=== PATIENT | female | born 1965 | race Two or more races ===

== ENCOUNTER 2023-08-10 15:18 | Inpatient (IN) | payer MEDICAID, OTHER ==
[~2023-08-10] VITALS: Ht 157.5 cm; Wt 89.3 kg
[2023-08-10 16:04] LABS: Basophils # (auto) 0.1 10 ^3/uL (0-0.2); Basophils % (auto) 0.4 % (0.0-2.0); Eosinophils # (auto) 0 10 ^3/uL (0-0.8); Hematocrit 38.9 % (36.0-46.0); Lymphocytes # (auto) 0.6 10 ^3/uL (0.4-5.4); Lymphocytes % (auto) 4.4 % (10.0-50.0); Mean Corpuscular Hemoglobin 29.6 pg (28.0-32.0); Mean Corpuscular Hgb Conc. 33.4 g/dL (32.0-36.0); Mean Corpuscular Volume 88.8 fL (80.0-100.0); Monocytes # (auto) 0.9 10 ^3/uL (0-1.3); Monocytes % (auto) 6.6 % (0.0-12.0); Neutrophils % (auto) 88.6 % (37.0-80.0); Red Blood Cells 4.38 10^6/uL (4.0-5.20); Red Cell Distribution Width 13.1 % (11.8-14.3); White Blood Cell 13.6 10^3/uL (4.4-10.8)
[2023-08-10] MEDS: SODIUM CHLORIDE 0.9% 1,000 ML IV ONE (16:18)
[2023-08-10 16:20] LABS: Alanine Aminotransferase 12 U/L (7-40); Albumin 4.3 g/dL (3.2-4.8); Alkaline Phosphatase 79 U/L (46-116); Anion Gap 9 (5-15); Aspartate Aminotransferase < 8 U/L (13-40); BUN/Creatinine Ratio 17.2 (10.0-20.0); Bilirubin, Total 1.4 mg/dL (0.2-1.0); Blood Urea Nitrogen 32 mg/dL (9-23); Carbon Dioxide 26 mmol/L (20-30); Chloride 92 mmol/L (98-107); Potassium 4.6 mmol/L (3.5-5.1); Sodium 127 mmol/L (136-145); Total Protein 6.7 g/dL (5.7-8.2)
[2023-08-10 16:35] LABS: Glucose 556 mg/dL (74-106)
[2023-08-10 17:04] LABS: Urine Bacteria MANY /hpf (None Seen); Urine Blood 1+ /uL (Negative); Urine Clarity Turbid (Clear); Urine Color Colorless (Yellow); Urine Mucus FEW (None Seen); Urine Protein, UAD 1+ (Negative); Urine Specific Gravity 1.019 (1.001-1.035); Urine Urobilinogen Normal (Negative); Urine WBC 56 /hpf (0 - 5); Urine pH 5.5 (5.0-9.0)
[2023-08-10] MEDS: InsuLIN REG 1unit/0.01ml Soln (100units/ml) SC ONE (17:51)
[2023-08-10] MEDS: cefTRIAXone 1GM/50ML D5W 50 ML IV ONE (18:27)
[2023-08-10] MEDS: ACETAMINOPHEN 325 MG TAB PO ONE ×2 (18:28→20:00)
[2023-08-10] MEDS ORDERED: DOCUSATE SOD 100 MG CAP PO PRN (19:30)
[2023-08-10] MEDS ORDERED: HYDROcodone-ACET 5/325MG TAB PO PRN (19:30)
[2023-08-10 19:38] LABS: COVID19 ANTIGEN SOFIA FIA NEGATIVE (NEGATIVE)
[2023-08-10 19:39] LABS: Rapid Influenza A Negative (Negative); Rapid Influenza B Negative (Negative)
[2023-08-10] MEDS: SODIUM CHLORIDE 0.9% 1,500 ML IV ONE (19:58)
[2023-08-10 20:00] VITALS: PULSE 128; RESP 18; O2SAT 98
[2023-08-10] MEDS: LACTATED RINGER'S 1,000 ML IV ONE ×2 (20:17→22:46)
[2023-08-10] MEDS: SODIUM CHLOR 0.9% PF (SALINE LOCK) 10ML VIAL/SYR IV SCH (22:00)
[2023-08-10 22:15] VITALS: PULSE 132; RESP 16; O2SAT 97
[2023-08-10] MEDS: ASPirin-EC 81 mg tab PO ONE (22:46)
[2023-08-10] MEDS: HEPARIN SODIUM (PORCINE) 5000 UNITS/ML 1ML VIAL SC SCH (22:46)
[2023-08-10] MEDS: InsuLIN REG 1unit/0.01ml Soln (100units/ml) IV ONE (22:47)
[2023-08-11 00:05] LABS: Creatinine, Urine 77.9 mg/dL (30.0-125.0)
[2023-08-11] MEDS: ACETAMINOPHEN 325 MG TAB PO ONE (00:54)
[2023-08-11] MEDS ORDERED: LACTATED RINGER'S 1,000 ML IV SCH (04:00)
[2023-08-11] MEDS: LACTATED RINGER'S 1,000 ML IV ONE ×2 (04:02)
[2023-08-11 05:28] LABS: INR 1.18 (0.9-1.15); Partial Thromboplastin Time 32.8 SEC (24.5-34.5); Prothrombin Time 12.4 sec (9.3-11.8)
[2023-08-11 07:30] VITALS: PULSE 99; RESP 15; O2SAT 96
[2023-08-11] MEDS ORDERED: ACETAMINOPHEN IV 1000 MG/100ML (10MG/ML) IV PRN (07:30)
[2023-08-11] MEDS: CHOLECALCIFEROL (VITD3) 1,000UNIT=25mCg TAB PO SCH (10:15)
[2023-08-11] MEDS: cefTRIAXone 2GM/50ML D5W 50 ML IV SCH (10:16)
[2023-08-11 10:36] LABS: Anion Gap 9 (5-15); Carbon Dioxide 22 mmol/L (20-30); Chloride 100 mmol/L (98-107); Potassium 4.4 mmol/L (3.5-5.1); Sodium 131 mmol/L (136-145)
[2023-08-11 10:43] LABS: BUN/Creatinine Ratio 14.5 (10.0-20.0); Blood Urea Nitrogen 23 mg/dL (9-23)
[2023-08-11 10:46] LABS: Base Excess -3.3 mmol/L (-2.0-2.0)
[2023-08-11 11:00] LABS: Glucose 409 mg/dL (74-106)
[2023-08-11] MEDS ORDERED: DEXTROSE (50%) 50ML SYRG IV PRN (11:00)
[2023-08-11] MEDS: ACCU-CHEK COMFORT CURVE STRIP VI SCH (11:47)
[2023-08-11] MEDS: InsuLIN REG 1unit/0.01ml Soln (100units/ml) SC SCH ×2 (11:58→21:59)
[2023-08-11] MEDS: INSULIN LANTUS (GLARGINE) 1 /0.01ml (100units/ml) SC SCH (11:59)
[2023-08-11 13:26] VITALS: BP 147/67; PULSE 111; PULSE 119; RESP 18; RESP 20; TEMP 98.2; O2SAT 94; O2SAT 98
[2023-08-11] MEDS ORDERED: CARV3.1240 PO (13:36)
[2023-08-11] MEDS ORDERED: PRE5T PO (13:36)
[2023-08-11] MEDS ORDERED: ROPI1TAB78 PO (13:36)
[2023-08-11] MEDS ORDERED: ASPI81CH59 PO (13:36)
[2023-08-11] MEDS ORDERED: MYCO1TAB2 PO (13:36)
[2023-08-11] MEDS ORDERED: TAMS1CAP25 PO (13:36)
[2023-08-11] MEDS ORDERED: MYCO1TAB PO (13:36)
[2023-08-11] MEDS ORDERED: FAMO-12 PO (13:36)
[2023-08-11] MEDS ORDERED: FER325T PO (13:36)
[2023-08-11] MEDS ORDERED: MAGN400T6 PO (13:36)
[2023-08-11] MEDS ORDERED: SEVE800T10 PO (13:36)
[2023-08-11] MEDS ORDERED: INSUINJ37 SC ×3 (14:22→14:31)
[2023-08-11] MEDS ORDERED: CARV-216 OR (14:22)
[2023-08-11] MEDS ORDERED: ESTR0.1C5 VA (14:22)
[2023-08-11] MEDS ORDERED: TACR1TAB2 PO ×2 (14:22→17:42)
[2023-08-11] MEDS ORDERED: INSU100I28 IJ ×4 (14:22→14:28)
[2023-08-11] MEDS ORDERED: REPA2TAB8 OR (14:22)
[2023-08-11] MEDS ORDERED: CHOL500021 OR (14:22)
[2023-08-11] MEDS ORDERED: MYCO360T PO (14:22)
[2023-08-11] MEDS ORDERED: DOCU-94 PO (14:24)
[2023-08-11] MEDS: FAMOTIDINE 20 MG TAB PO SCH (15:00)
[2023-08-11 16:56] VITALS: BP 110/66; PULSE 121; RESP 18; TEMP 99.5; O2SAT 94
[2023-08-11] MEDS: ONDANSETRON HCL 4 MG/2 ML VIAL IV PRN (17:43)
[2023-08-11] MEDS: TAMSULOSIN HYDROCHLORIDE 0.4 MG CAP PO SCH (17:43)
[2023-08-11] MEDS: FERROUS SULFATE 325mg EC TAB PO SCH (17:43)
[2023-08-11] MEDS: SEVELAMER 800 MG TAB PO SCH (17:54)
[2023-08-11] MEDS: ACETAMINOPHEN 325 MG TAB PO PRN (17:57)
[2023-08-11 20:00] VITALS: PULSE 100
[2023-08-11] MEDS: HEPARIN SODIUM (PORCINE) 5000 UNITS/ML 1ML VIAL SC SCH (21:10)
[2023-08-11] MEDS: MAGNESIUM OXIDE 400 MG TAB PO SCH (21:23)
[2023-08-11] MEDS: CARVEDILOL 3.125 MG TAB PO SCH (21:23)
[2023-08-11 21:32] VITALS: BP 116/50; PULSE 99; RESP 18; TEMP 98.2; O2SAT 100
[2023-08-11] MEDS ORDERED: HEPARIN SODIUM (PORCINE) 5000 UNITS/ML 1ML VIAL SC SCH (22:00)
[2023-08-12] VITALS (11 sets, daily range): BP systolic 101–165; BP diastolic 43–79; PULSE 75–100; RESP 14–18; TEMP 97.8–100; O2SAT 95–98
[2023-08-12] MEDS: ASPirin 81 mg TAB PO SCH (10:03)
[2023-08-12] MEDS: predniSONE 5 MG TAB PO SCH (10:03)
[2023-08-12] MEDS: SODIUM CHLORIDE 0.9% 1,000 ML IV ONE (18:58)
[2023-08-12 19:31] LABS: Chloride 100 mmol/L (98-107); Sodium 131 mmol/L (136-145)
[2023-08-12 19:32] LABS: Anion Gap 4 (5-15); Carbon Dioxide 27 mmol/L (20-30)
[2023-08-12 19:33] LABS: Calcium 9.8 mg/dL (8.5-10.1)
[2023-08-12 19:37] LABS: Glucose 330 mg/dL (74-106)
[2023-08-12 19:38] LABS: BUN/Creatinine Ratio 14.7 (10.0-20.0); Blood Urea Nitrogen 20 mg/dL (9-23)
[2023-08-13] VITALS (7 sets, daily range): BP systolic 131–177; BP diastolic 54–93; PULSE 64–87; RESP 15–19; TEMP 97.9–98.4; O2SAT 94–98
[2023-08-13] MEDS: hydrALAZINE HCL 20 MG/ML VL IV PRN (04:08)
[2023-08-13 05:22] LABS: Chloride 102 mmol/L (98-107); Potassium 3.9 mmol/L (3.5-5.1)
[2023-08-13 05:23] LABS: Anion Gap 7 (5-15); Calcium 9.9 mg/dL (8.5-10.1); Carbon Dioxide 27 mmol/L (20-30)
[2023-08-13 05:29] LABS: BUN/Creatinine Ratio 14.8 (10.0-20.0); Blood Urea Nitrogen 19 mg/dL (9-23); Glucose 123 mg/dL (74-106); Sodium 136 mmol/L (136-145)
[2023-08-13] MEDS: FUROSEMIDE 40 MG/4 ML VIAL IV ONE (13:15)
[2023-08-14] VITALS (7 sets, daily range): BP systolic 108–133; BP diastolic 59–65; PULSE 80–95; RESP 16–19; TEMP 36.7; O2SAT 19–97
[2023-08-14] MEDS: FUROSEMIDE 40 MG/4 ML VIAL IV SCH (09:51)
[2023-08-14 11:09] LABS: Chloride 97 mmol/L (98-107); Potassium 3.7 mmol/L (3.5-5.1)
[2023-08-14 11:10] LABS: Anion Gap 8 (5-15); Calcium 9.8 mg/dL (8.5-10.1); Carbon Dioxide 26 mmol/L (20-30)
[2023-08-14 11:15] LABS: BUN/Creatinine Ratio 11.6 (10.0-20.0); Blood Urea Nitrogen 17 mg/dL (9-23); Glucose 312 mg/dL (74-106)
[2023-08-14 11:17] LABS: Sodium 131 mmol/L (136-145)
[2023-08-14] MEDS ORDERED: CEPH500C PO (17:28)
== END 2023-08-14 18:50 | disposition home or self-care (01) | DRG 720 ==
LOC: ER 15:18 → UNDOADMIN 19:30 → OVERFLOW 19:30 → TELE-WESTW 08-11 13:40
PROVIDERS: ADMIT Nurse Practitioner; ATTEND Nurse Practitioner
DX: A41.9 Sepsis, unspecified organism (principal); N17.0 Acute kidney failure with tubular necrosis; R57.1 Hypovolemic shock; I31.39 Other pericardial effusion (noninflammatory); E87.1 Hypo-osmolality and hyponatremia; N10 Acute pyelonephritis; E11.22 Type 2 diabetes mellitus with diabetic chronic kidney disease; E11.65 Type 2 diabetes mellitus with hyperglycemia; E86.0 Dehydration; I12.0 Hypertensive chronic kidney disease with stage 5 chronic kidney disease or end stage renal disease; N18.6 End stage renal disease; Z20.822 Contact with and (suspected) exposure to COVID-19; I25.10 Atherosclerotic heart disease of native coronary artery without angina pectoris; B96.1 Klebsiella pneumoniae [K. pneumoniae] as the cause of diseases classified elsewhere; I51.7 Cardiomegaly; K80.20 Calculus of gallbladder without cholecystitis without obstruction; Z94.0 Kidney transplant status; Z79.4 Long term (current) use of insulin; Z91.148 Patient's other noncompliance with medication regimen for other reason; Z79.899 Other long term (current) drug therapy; Z79.82 Long term (current) use of aspirin; Z79.60 Long term (current) use of unspecified immunomodulators and immunosuppressants; Z91.199 Patient's noncompliance with other medical treatment and regimen due to unspecified reason
CPT/HCPCS: 36415; 36600; 71045; 71250; 74176; 80048; 80053; 80197; 81001; 82010; 82570; 82805; 82962; 83605; 83930; 83935; 84300; 85025; 85610; 85730; 87086; 87088; 87186; 87426; 87804; 93005; 93306; 96361; 96365; 96372; G0378; J1815; J2405